=== PATIENT | male | born 1945 | race Caucasian/White ===

== ENCOUNTER 2021-09-10 14:44 | Outpatient (RCR) | payer MEDICARE, SELFPAY ==
--- NOTE | 2021-09-08 10:36 | ONC.NURNOTE ---
Authorization: User: Teresita Anne Edilia Date: 02/14/21 12:47 Type: Eligibility Determination Note... Request received from [facility] for prior authorization of Leuprolide [id number]. Patient carries Medicare as primary insurance. Per CMS.gov LCD Z18779 no prior authorization is required for Leuprolide. Services are based on medical necessity and follows Medicare guidelines.
[2021-09-10 15:16] VITALS: BP 145/88; PULSE 63; RESP 16; TEMP 36.5; O2SAT 94
[2021-09-10] MEDS: LEUPROLIDE ACETATE 22.5 MG (SQ) SYRINGE SUBCUT (15:29)
== END 2021-09-28 23:59 | disposition home or self-care (01) ==
LOC: CCIC 14:44
PROVIDERS: Visit Provider Internal Medicine Hematology & Oncology
DX: C61 Malignant neoplasm of prostate (principal); C79.51 Secondary malignant neoplasm of bone
CPT/HCPCS: 96372; J9217

== ENCOUNTER 2021-12-31 14:08 | Outpatient (CLI) | payer MEDICARE, SELFPAY ==
--- NOTE | 2021-12-31 14:00 | CRLHL7_ITS ---
For Patients: As a result of the Century Cures Act, medical imaging exams and procedure reports are released immediately into your electronic medical record. You may view this report before your referring provider. If you have questions, please contact your health care provider. Indication: Metastatic PROSTATE CANCER. ASSESS TREATMENT RESPONSE Technique: Postcontrast CT abdomen and pelvis. 99 cc Isovue 370 intravenous contrast. Please note that all CT scans at this facility use dose modulation, iterative reconstruction, and/or weight-based dosing when appropriate to reduce radiation dose to as low as reasonably achievable. Comparison: July 11, 2021 Findings: Bilateral gynecomastia again noted. Simple subcentimeter cyst left hepatic lobe. Gallbladder absent. No biliary obstruction. Spleen normal. Adrenal glands normal. Innumerable moderate attenuation renal cysts again noted. No hydronephrosis. Extensive vascular calcifications with ectasia of the aorta. No pancreatic mass. Stable subcentimeter retroperitoneal lymph nodes. No small bowel obstruction. Prostate appears similar. No bladder stone. Ureters are normal. Stable mild stranding along the left pelvic sidewall with subcentimeter lymph nodes. Sigmoid diverticulosis. No diverticulitis. No bowel obstruction or free air. Appendix normal. Scarring within the lung bases along with right lower lobe bronchiectasis. Resolution of the previously noted pleural effusion. Degenerative disc disease L3-4. Bridging osteophytes lower thoracic spine. Facet degeneration lower lumbar spine. No fracture. No suspicious blastic lesion. Impression: No enlarged lymph nodes within the abdomen and pelvis. No blastic osseous lesions to suggest metastatic disease. Similar appearance of the left pelvic sidewall with mild stranding and subcentimeter lymph nodes. Similar appearance of the prostate. Innumerable renal cysts. No hydronephrosis or solid renal mass. Bibasilar fibrosis within the lungs with resolution of the previously noted right pleural effusion. Please note that all CT scans at this facility use dose modulation, iterative reconstruction, and/or weight-based dosing when appropriate to reduce radiation dose to as low as reasonably achievable. Dictated by Nash Liu MD @ 01/01/2022 1:26:55 PM (Electronically Signed)
--- NOTE | 2021-12-31 14:00 | CRLHL7_ITS ---
For Patients: As a result of the Century Cures Act, medical imaging exams and procedure reports are released immediately into your electronic medical record. You may view this report before your referring provider. If you have questions, please contact your health care provider. Indicate: Neoplasm of the parotid gland. Compared : 07/11/2021. TECHNIQUE: CT soft tissue neck with IV contrast. Isovue 370, 99 cc. FINDINGS: Stable postop changes of left parotidectomy. There is stable soft tissue thickening at the deep aspect of the resection cavity. Previously noted soft tissue nodule within this region is less conspicuous. Overall, findings likely represent post treatment changes. No soft tissue nodularity extending into the deep soft tissues of the neck. Normal right parotid gland. Normal bilateral submandibular glands. No new enlarged cervical lymph nodes. Partial left neck dissection. No supraclavicular superior mediastinal adenopathy. Stable heterogeneous low-attenuation nodule of the right thyroid lobe. Nasopharynx and oropharynx are clear. No inflammation within the parapharyngeal fat pads or retropharyngeal space. Normal thickness of the epiglottis. Normal glottis with symmetric vocal cords. Visualized lungs are clear. Normal alignment of the cervical spine. No prevertebral soft tissue swelling. Cervical spondylosis. IMPRESSION: 1. Stable postoperative changes of left parotidectomy. Stable soft tissue thickening at the deep aspect of the resection cavity. Previously noted soft tissue nodule in this region has decreased in conspicuity and likely represents posttreatment changes. No new soft tissue nodularity extending into the deep soft tissues of the neck. 2. Stable postoperative changes of partial left neck dissection. 3. No new adenopathy. 4. Normal deep soft tissues of the neck Please note that all CT scans at this facility use dose modulation, iterative reconstruction, and/or weight-based dosing when appropriate to reduce radiation dose to as low as reasonably achievable. Dictated by Rick Valdez MD @ 01/01/2022 7:40:25 AM (Electronically Signed)
== END 2021-12-31 14:09 | disposition home or self-care (01) ==
LOC: CT 14:10
PROVIDERS: Visit Provider Internal Medicine Hematology & Oncology
DX: C61 Malignant neoplasm of prostate (principal); D37.030 Neoplasm of uncertain behavior of the parotid salivary glands; N28.1 Cyst of kidney, acquired; J84.178 Other interstitial pulmonary diseases with fibrosis in diseases classified elsewhere
CPT/HCPCS: 70491; 74177; Q9967

== ENCOUNTER 2022-03-25 14:15 | Outpatient (CLI) | payer MEDICARE, SELFPAY ==
--- NOTE | 2022-03-25 14:30 | MR_ITS ---
Final Report Patient: MACKENZIE LAWLER Facility:?[facility] Patient ID:?[id number] Site Patient ID:?[id number]. Site :?[id number] Study:?MRI Spine Thoracic W/WO 15 CC DOTAREM-03/25/2022 5:33:28 PM Ordering Physician:Vanessa Woody Final Report: Indication: Pain. Leg weakness. Bone metastases. Technique: Multiplanar, multisequence MRI of the thoracic spine was performed without and with the use of 15 cc Dotarem intravenous contrast. Comparison: MRI thoracic spine 01/20/2021. Findings: There is interval increased T1 signal to the T5-9 vertebral bodies, likely related to sequela of radiation treatment. Re- demonstration superior endplate compression deformity of the T5 vertebral body, stable from prior examination and without internal marrow edema. There are abnormal T1 hypo intense lesions again noted within the T6, T7 and T8 vertebral bodies. Portions of these lesions demonstrate internal STIR hyperintensity as well as enhancement. Extension to involve the posterior elements to the left of midline at the T7 level. There is additional cortical breakthrough, with involvement of the left T7-8 neuroforamen. There is heterogeneous marrow signal of the lower thoracic spine, with T1 signal greater than that of the disc space. This could represent marrow reconversion or sequela of chemotherapy. No abnormal cord signal. Moderate narrowing of the left neural foramina at T7-8. There is moderate spinal canal narrowing at the T4-5 level, with disc bulge abutting the ventral aspect of the cord, with mild cord kinking. Mild spondylosis throughout the remaining thoracic levels, with mild spinal canal and neural foraminal narrowing at the T2-3 level. Impression: 1. Interval postradiation treatment related changes to the T5-9 vertebral bodies. 2. Redemonstration of sclerotic metastatic foci involving the T6, T7 and T8 vertebral bodies. There is similar extension into the left posterior elements at T7, with cortical breakthrough and involvement of the left T7-8 neural foramina. Overall appearance and extent of involvement is similar to prior 01/20/2021. 3. Stable chronic superior endplate compression deformity of T5. 4. At C4-5, disc degeneration abutting the ventral aspect of the cord, with mild cord kinking. Dictated by Low Varela MD @ 03/27/2022 9:07:14 AM (Electronic Signature)
== END 2022-03-25 14:16 | disposition home or self-care (01) ==
LOC: MRI 14:18
PROVIDERS: Visit Provider Clinical Nurse Specialist
DX: C61 Malignant neoplasm of prostate (principal); C79.51 Secondary malignant neoplasm of bone; C07 Malignant neoplasm of parotid gland; R29.898 Other symptoms and signs involving the musculoskeletal system; M50.321 Other cervical disc degeneration at C4-C5 level
CPT/HCPCS: 72157; A9575

== ENCOUNTER 2022-04-13 13:00 | Outpatient (RCR) | payer MEDICARE, SELFPAY ==
--- NOTE | 2021-10-01 08:50 | ONC.NURNOTE ---
Received phone call from [facility] stating that they are unable to get ahold of patient. Called them at [phone], to let them know patient and spouse phone number.
[2021-10-30 15:51] LABS: Basophils Absolute Auto 0.01 K/uL (0.00-0.30); Basophils Percent Auto 0.2 % (0.0-3.0); Eosinophils Absolute Auto 0.11 K/uL (0.00-0.50); Eosinophils Percent Auto 2.4 % (0.0-7.0); Hematocrit 38.6 % (37.0-53.0); Hemoglobin* 12.7 gm/dL (13.5-17.5); Immature Granulocytes Abs Auto 0.04 K/uL (0.00-0.30); Lymphocytes Percent Auto 13.9 % (20-44); Mean Corpuscular HGB Conc 33 gm/dL (32-36); Mean Corpuscular Hemoglobin 31 pg (26-34); Mean Corpuscular Volume 94 fL (80-100); Monocytes Percent Auto 16.8 % (0.0-11.0); Neutrophils Absolute Auto 2.97 K/uL (1.7-7.0); Neutrophils Percent Auto 65.8 % (42.0-72.0); Platelet Count* 187 K/uL (140-440); RDW Coefficient of Variation % 13.9 % (11.5-15.5); White Blood Count* 4.52 K/uL (4.50-11.00)
[2021-10-30 15:55] LABS: Slide Review Reflex No
[2021-10-30 16:55] LABS: Albumin* 3.8 g/dL (3.3-5.0); Chloride* 107 mmol/L (96-114)
[2021-10-30 16:56] LABS: Potassium* 4.6 mmol/L (3.6-5.1); Sodium* 138 mmol/L (135-149)
[2021-10-30 16:58] LABS: Bilirubin Total* 0.8 mg/dL (0.1-1.5); Carbon Dioxide* 23 mmol/L (20-32); Estimated Glomerular Filt Rate 78 ml/min
[2021-10-30 16:59] LABS: Alanine Aminotransferase* 17 U/L (4-50); Alkaline Phosphatase* 74 U/L (40-150); Aspartate Amino Transferase* 25 U/L (12-35); Blood Urea Nitrogen* 32 mg/dL (7-30); Glucose* 102 mg/dL (60-115); Total Protein* 7.1 g/dL (6.0-8.3)
[2021-10-30 17:34] LABS: PSA Diagnostic* < 0.06 ng/mL (0.10-4.00)
[2021-12-09 14:28] LABS: Basophils Percent Auto 0.2 % (0.0-3.0); Hematocrit 37.1 % (37.0-53.0); Immature Granulocytes Abs Auto 0.01 K/uL (0.00-0.30); Lymphocytes Percent Auto 16.3 % (20-44); Mean Corpuscular HGB Conc 32 gm/dL (32-36); Mean Corpuscular Hemoglobin 31 pg (26-34); Mean Corpuscular Volume 96 fL (80-100); Monocytes Percent Auto 15.6 % (0.0-11.0); Neutrophils Percent Auto 64.7 % (42.0-72.0); Platelet Count* 157 K/uL (140-440); RDW Coefficient of Variation % 14.1 % (11.5-15.5); Red Blood Count 3.87 m/uL (4.30-5.90); White Blood Count* 4.29 K/uL (4.50-11.00)
[2021-12-09 14:46] LABS: Slide Review Reflex No
[2021-12-09 14:49] LABS: Chloride* 108 mmol/L (96-114); Potassium* 4.4 mmol/L (3.6-5.1); Sodium* 138 mmol/L (135-149)
[2021-12-09] MEDS: LEUPROLIDE ACETATE 22.5 MG (SQ) SYRINGE SUBCUT (14:50)
[2021-12-09 14:51] LABS: Creatinine* 0.9 mg/dL (0.5-1.5); Estimated Glomerular Filt Rate 87 ml/min
[2021-12-09 14:52] LABS: Alanine Aminotransferase* 15 U/L (4-50); Alkaline Phosphatase* 83 U/L (40-150); Aspartate Amino Transferase* 22 U/L (12-35); Blood Urea Nitrogen* 29 mg/dL (7-30); Carbon Dioxide* 22 mmol/L (20-32); Glucose* 111 mg/dL (60-115); Total Protein* 6.9 g/dL (6.0-8.3)
[2021-12-09 15:29] VITALS: BP 150/89
[2021-12-09 15:34] LABS: PSA Diagnostic* < 0.06 ng/mL (0.10-4.00)
--- NOTE | 2022-01-15 16:06 | ONC.NURNOTE ---
Re-enrollment into [employer] [facility] for Xtandi was completed and received by [facility] per [facility]- patient no longer meets the new income limits and no longer will qualify for enrollment
--- NOTE | 2022-01-19 12:03 | ONC.NURNOTE ---
Addendum entered by Fanta Lopez RN 01/26/22 13:34: [facility] called with info about out of pocket costs of Xtandi with Part D he will have about $3000 the first month to meet the deductible and out of pocket costs 2nd month to be expected around 1882.98 once he gets to the catastrophic coverage out of pocket is 5% which will be $740 monthly there are no grants available for prostate cancer at this time but they have added patient to the list and will watch for clementine availability daily patient income is within eligibility for grants Addendum entered by Fanta Lopez RN 01/20/22 11:14: enzlutamine RX faxed to [facility] including PA, insurance, med list, [place] note request that they review for copay costs and clementine availability Original Note: notified that Babak does not qualify for re-enrollment in the Xtandi PAP- he exceeds the income limitiation next step plan was discussed with Nenita: Submit RX to [facility] to do benefits review to determine out of pocket costs patient has Xtandi doses through early March may need to talk to provider about other medication options is drug copay is not affordable for patient
--- NOTE | 2022-01-26 10:24 | ONC.NURNOTE ---
Patients called. They need the patients most recent CT scans sent to [facility]. There is a signed release form on file. Called Radiology and gave them the information and they are going to push them up to [place] right away.
--- NOTE | 2022-01-27 14:45 | ONC.NURNOTE ---
Phone call to Nenita about Xtandi costs without a copay program-$[phone] first months of 2022 and then $740/month for the 5% catastrophic coverage states the cost will be unaffordable for them discussed option of Erleada for [facility]MP[facility] /pt agreeable to proceed with Erleada new RX for Erleada sent to [facility] by Dr Deysi Kumar has a copay program for Erleada-
--- NOTE | 2022-02-04 10:00 | ONC.NURNOTE ---
PA completed for Erleada via [employer] effective 01/28/22 until further notice Auth # [id number] Copay $[id number] no copay grants available at this time for prostate cancer [facility] Copay program application to be discussed with patient/
--- NOTE | 2022-02-16 10:38 | ONC.NURNOTE ---
José application completed and faxed in to [facility] for enrollment in the [facility] Patient Assist Program
--- NOTE | 2022-03-09 09:39 | URNOTE ---
Request received for authorization for Leuprolide (Lupron/ Eligard) ([id number]). Prior authorization is not required as services are based on medical necessity and follow Medicare guidelines.
[2022-03-11 15:30] LABS: Basophils Absolute Auto 0.02 K/uL (0.00-0.30); Basophils Percent Auto 0.3 % (0.0-3.0); Eosinophils Absolute Auto 0.16 K/uL (0.00-0.50); Eosinophils Percent Auto 2.6 % (0.0-7.0); Hematocrit 40.7 % (37.0-53.0); Hemoglobin* 13.2 gm/dL (13.5-17.5); Immature Granulocytes Abs Auto 0.02 K/uL (0.00-0.30); Immature Granulocytes Pct Auto 0.3 %; Lymphocytes Percent Auto 11.6 % (20-44); Mean Corpuscular HGB Conc 32 gm/dL (32-36); Mean Corpuscular Hemoglobin 31 pg (26-34); Mean Corpuscular Volume 96 fL (80-100); Monocytes Percent Auto 11.5 % (0.0-11.0); Neutrophils Percent Auto 73.7 % (42.0-72.0); Platelet Count* 187 K/uL (140-440); RDW Coefficient of Variation % 13.8 % (11.5-15.5); Red Blood Count 4.26 m/uL (4.30-5.90); White Blood Count* 6.19 K/uL (4.50-11.00)
[2022-03-11] MEDS: LEUPROLIDE ACETATE 22.5 MG (SQ) SYRINGE SUBCUT (15:31)
[2022-03-11 15:32] LABS: Slide Review Reflex No
[2022-03-11 15:38] VITALS: BP 145/89; PULSE 74; RESP 18; TEMP 37.1; O2SAT 96
--- NOTE | 2022-03-11 15:39 | PC.NURSE ---
Pt presents to [facility] today for Eligard injection and shared with nursing that he stopped his Xtandi as of today due to very concerning LE weakness. Pt states that his legs barely work. He can walk only very short distances and notes the weakness is worse when he gets up from sitting/standing. Babak has no LE edema. He has mild generalized pain in BLE, L>R. He also has mild pain in his back and along his RIGHT lateral abdomen/side. Babak shares that in the last several months he has noted more urinary incontinence. Of note, Babak has severe psoriasis of which he doctors in [place] and has an appointment at the end of April. Will review all of the above with [facility] Provider team. Babak has a follow-up scheduled with Dr. Jo on 04/13/2022 at 1:00 PM at [facility]. RN will advise pt to go to the ER sooner if his LE weakness worsens.
[2022-03-11 15:45] LABS: Albumin* 4.2 g/dL (3.3-5.0); Chloride* 106 mmol/L (96-114); Sodium* 138 mmol/L (135-149)
[2022-03-11 15:46] LABS: Potassium* 4.3 mmol/L (3.6-5.1)
[2022-03-11 15:48] LABS: Alkaline Phosphatase* 80 U/L (40-150); Aspartate Amino Transferase* 22 U/L (12-35); Bilirubin Total* 1.1 mg/dL (0.1-1.5); Blood Urea Nitrogen* 30 mg/dL (7-30); Carbon Dioxide* 23 mmol/L (20-32); Creatinine* 0.9 mg/dL (0.5-1.5); Estimated Glomerular Filt Rate 87 ml/min; Total Protein* 7.5 g/dL (6.0-8.3)
[2022-03-11 15:49] LABS: Alanine Aminotransferase* 19 U/L (4-50); Calcium* 9.1 mg/dL (8.4-10.6); Glucose* 108 mg/dL (60-115)
[2022-03-11 16:24] LABS: PSA Diagnostic* < 0.06 ng/mL (0.10-4.00)
--- NOTE | 2022-03-26 15:16 | ONC.NURNOTE ---
Erleada: to be delivered tomorrow Reviewed side effects with Nenita patient has appt on 04/13/22 with lab Discussed drug interaction of carvdilol and Erleada= moderate interaction that reduces the plasma concentration of carvedilol by 70% instructed to contact PCP about other options and to be diligent about monitoring BP and watch for signs of swelling, change in breathing
--- NOTE | 2022-03-30 13:46 | ONC.NURNOTE ---
Joe arrived this am. Will plan to start today.
--- NOTE | 2022-04-03 11:45 | ONC.NURNOTE ---
New Erleada start check in: spoke with reports no changes fatigue might be a slighly improved since stopping xtandi reviewed interaction with carvedilol- understands to watch for signs of swellling, SOB, BP changes also discussed avoiding omeprazole/ prilosec which interacts with Erleada next appts reviewed patient understands how to take the Erleada and will try to separate times from Carvedilol
[2022-04-13 12:44] LABS: Basophils Absolute Auto 0.01 K/uL (0.00-0.30); Basophils Percent Auto 0.2 % (0.0-3.0); Eosinophils Absolute Auto 0.15 K/uL (0.00-0.50); Eosinophils Percent Auto 2.8 % (0.0-7.0); Hematocrit 39.9 % (37.0-53.0); Hemoglobin* 12.9 gm/dL (13.5-17.5); Immature Granulocytes Abs Auto 0.01 K/uL (0.00-0.30); Immature Granulocytes Pct Auto 0.2 %; Lymphocytes Percent Auto 12.7 % (20-44); Mean Corpuscular HGB Conc 32 gm/dL (32-36); Mean Corpuscular Hemoglobin 31 pg (26-34); Mean Corpuscular Volume 95 fL (80-100); Monocytes Percent Auto 10.6 % (0.0-11.0); Neutrophils Percent Auto 73.5 % (42.0-72.0); Platelet Count* 175 K/uL (140-440); Red Blood Count 4.19 m/uL (4.30-5.90); White Blood Count* 5.37 K/uL (4.50-11.00)
[2022-04-13 12:47] LABS: Slide Review Reflex No
[2022-04-13 13:03] LABS: Albumin* 3.8 g/dL (3.3-5.0); Chloride* 109 mmol/L (96-114); Potassium* 4.2 mmol/L (3.6-5.1); Sodium* 139 mmol/L (135-149)
[2022-04-13 13:05] LABS: Bilirubin Total* 0.7 mg/dL (0.1-1.5); Carbon Dioxide* 23 mmol/L (20-32); Creatinine* 0.9 mg/dL (0.5-1.5); Estimated Glomerular Filt Rate 87 ml/min
[2022-04-13 13:06] LABS: Alanine Aminotransferase* 20 U/L (4-50); Alkaline Phosphatase* 64 U/L (40-150); Aspartate Amino Transferase* 22 U/L (12-35); Blood Urea Nitrogen* 27 mg/dL (7-30); Glucose* 112 mg/dL (60-115)
[2022-04-13 13:38] LABS: PSA Diagnostic* < 0.06 ng/mL (0.10-4.00)
[2022-04-16 04:09] LABS: Cortisol, Serum 10.4 ug/dL
--- NOTE | 2022-04-16 11:42 | ONC.NURNOTE ---
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 This advertising writer has called both [facility] (received the same message about refills) and attempted to call [facility]. This advertising writer has never gotten through to [facility], long hold times, and voicemail option- but have not ever received a return call. Email sent to [facility] rep to help triage the refill challenge.
--- NOTE | 2022-04-28 12:43 | ONC.NURNOTE ---
Nenita returned this writers phone call -Babak has not received Erleada refills that were expected to be delivered on 04/24/22 Last dose of Erleada was taken on 04/24/22 -Nenita reports that they have decided to take a medication holiday- per Nenita this was discussed with Dr Jo Babak is experiencing significant weakness that has been worked up and evaluated, and wants to see if his strength improves while being off the Erleada brief writer listened and will let Dr Jo know next Wednesday -follow up appts for Lupreolide, lab and Dr Vega was set up -patient will remain enrolled in the [facility] Erleada program until follow up visit -encouraged Nenita to call with any further questions or concerns
== END 2022-04-28 23:59 | disposition home or self-care (01) ==
LOC: CCIC 13:00
PROVIDERS: Internal Medicine Hematology & Oncology; Visit Provider Internal Medicine Medical Oncology
DX: C61 Malignant neoplasm of prostate (principal); C79.51 Secondary malignant neoplasm of bone; R53.1 Weakness
CPT/HCPCS: 36415; 80053; 82533; 84153; 84443; 85025; 96401; 99212; 99214; 99215; J9217

== ENCOUNTER 2022-06-08 10:54 | Outpatient (RCR) | payer MEDICARE, SELFPAY ==
[2022-06-08 11:20] LABS: Basophils Absolute Auto 0.02 K/uL (0.00-0.30); Basophils Percent Auto 0.4 % (0.0-3.0); Eosinophils Absolute Auto 0.16 K/uL (0.00-0.50); Eosinophils Percent Auto 3.3 % (0.0-7.0); Hemoglobin* 12.3 gm/dL (13.5-17.5); Immature Granulocytes Abs Auto 0.01 K/uL (0.00-0.30); Immature Granulocytes Pct Auto 0.2 %; Lymphocytes Percent Auto 12.7 % (20-44); Mean Corpuscular HGB Conc 32 gm/dL (32-36); Mean Corpuscular Hemoglobin 31 pg (26-34); Mean Corpuscular Volume 95 fL (80-100); Monocytes Percent Auto 12.7 % (0.0-11.0); Neutrophils Absolute Auto 3.39 K/uL (1.7-7.0); Neutrophils Percent Auto 70.7 % (42.0-72.0); Platelet Count* 167 K/uL (140-440); RDW Coefficient of Variation % 13.6 % (11.5-15.5); Red Blood Count 3.99 m/uL (4.30-5.90)
[2022-06-08 11:22] LABS: Slide Review Reflex No
[2022-06-08 11:33] LABS: Albumin* 3.8 g/dL (3.3-5.0); Chloride* 109 mmol/L (96-114); Sodium* 138 mmol/L (135-149)
[2022-06-08 11:34] LABS: Potassium* 4.3 mmol/L (3.6-5.1)
[2022-06-08 11:36] LABS: Alkaline Phosphatase* 65 U/L (40-150); Aspartate Amino Transferase* 21 U/L (12-35); Bilirubin Total* 0.7 mg/dL (0.1-1.5); Blood Urea Nitrogen* 31 mg/dL (7-30); Carbon Dioxide* 23 mmol/L (20-32); Estimated Glomerular Filt Rate 77 ml/min; Total Protein* 6.9 g/dL (6.0-8.3)
[2022-06-08 11:37] LABS: Alanine Aminotransferase* 19 U/L (4-50); Calcium* 8.9 mg/dL (8.4-10.6); Glucose* 115 mg/dL (60-115)
[2022-06-08 12:08] LABS: PSA Diagnostic* < 0.06 ng/mL (0.10-4.00)
[2022-06-08] MEDS: LEUPROLIDE ACETATE 22.5 MG (SQ) SYRINGE SUBCUT (13:48)
--- NOTE | 2022-06-10 11:50 | ONC.NURNOTE ---
Left message with [facility] at [facility] to place Erleada RX on hold patient to continue to stay off of this time PSA remains low
--- NOTE | 2022-07-07 14:38 | ONC.NURNOTE ---
Addendum entered by Angie Connors RN 07/09/22 13:59: Pt notified of Dr. Johnson's recommendation. Addendum entered by Angie Connors RN 07/09/22 13:59: Discussed with Dr. Johnson, she does not feel a referral to [facility] prostate Cancer specialist is necessary at this time. Pt can initiate a self referral if needed. Pt's PSA is undetectable at this time, chart reviewed by Dr. Johnson. Original Note: Patient's called and notes that patient wants to transfer his case down to [place] and see a med-onc provider specializing in Prostate cancer. He called [facility] and notes that they are requesting the referral be sent down to them.
--- NOTE | 2022-07-14 12:10 | ONC.NURNOTE ---
received email request from Babak with [facility] letter attachment with instructions to send records to [facility] and email forwarded to our HIS for release
== END 2022-12-05 23:59 | disposition home or self-care (01) ==
LOC: CCIC 10:54
PROVIDERS: Clinical Nurse Specialist; Visit Provider Physician Assistant
DX: C61 Malignant neoplasm of prostate (principal); C79.51 Secondary malignant neoplasm of bone; R53.1 Weakness; C07 Malignant neoplasm of parotid gland; R06.00 Dyspnea, unspecified; R29.898 Other symptoms and signs involving the musculoskeletal system
CPT/HCPCS: 36415; 80053; 84153; 85025; 96372; 96401; 99212; 99215; J9217